=== PATIENT | male | born 1985 | race Caucasian/White ===

== ENCOUNTER 2018-10-15 09:14 | Emergency (ER) | payer OTHER, MEDICAID ==
--- NOTE | 2018-10-15 09:39 | ED ---
Substance Abuse/Use - HPI Summary HPI Summary: This patient is a 33 year old M brought in by ambulance to [facility] with a chief complaint of EtOH intoxication since last night. The patient drank 6 tall boys and a bottle of wine last night, after which his family decided to call the ambulance. Patient denies SI. He reports that he drinks because his brother became homeless and he cannot help him. Patient reports that he is a with a PMHx of a spinal fusion. Patient will be signed out from Dr. Hanks to Dr. Reilly, pending a MHE. - History Of Current Complaint Chief Complaint: EDSubstanceAbuse Stated Complaint: 2208 Time Seen by Provider: 10/15/18 09:25 Hx Obtained From: Patient, EMS Onset/Duration of Drug/ETOH Abuse: Hours Ingestion History: Type/Name Of Drug - EtOH Overdose Characteristics: Oral Timing Of Abuse: Binge Use Associated Signs And Symptoms: Other: - Denies suicidal ideations - Allergies/Home Medications Allergies/Adverse Reactions: Allergies Allergy/AdvReac Type Severity Reaction Status Date / Time No Known Allergies Allergy Verified 03/16/15 14:05 Home Medications: Home Medications NK [No Home Medications Reported] 10/15/18 [History Confirmed 10/15/18] PMH/Surg Hx/FS Hx/Imm Hx Endocrine/Hematology History: Denies: Hx Anticoagulant Therapy, Hx Diabetes, Hx Thyroid Disease Cardiovascular History: Denies: Hx Hypertension, Hx Pacemaker/ICD Respiratory History: Denies: Hx Asthma, Hx Chronic Obstructive Pulmonary Disease (COPD) History: Denies: Hx Renal Disease Musculoskeletal History: Reports: Hx Back Problems - L1 L2 FUSION, Other Musculoskeletal History - chronic pain Sensory History: Reports: Hx Contacts or Glasses Opthamlomology History: Reports: Hx Contacts or Glasses Neurological History: Denies: Hx Dementia, Hx Seizures Psychiatric History: Reports: Hx Anxiety, Hx Attention Deficit Hyperactivity Disorder, Hx Depression, Hx Post Traumatic Stress Disorder, Hx Inpatient Treatment, Hx Community Mental Health Tx, Hx of Violent Episodes Against Others , Hx Substance Abuse, Other Psychiatric Issues/Disorders - ANGER ISSUES Denies: Hx Eating Disorder - Surgical History Surgery Procedure, Year, and Place: REPAIR BURST FRACTURE L-1 2010 ([facility] ) Infectious Disease History: No Infectious Disease History: Denies: Hx Hepatitis, Hx Human Immunodeficiency Virus (HIV), Traveled Outside the [place] in Last 30 Days - Family History Known Family History: Negative: Diabetes - Social History Alcohol Use: Daily Alcohol Amount: 2-3 x/week. 3-4 beers per session. admits to drinking 1/4-3/4 bottle rum Substance Use Type: Reports: Prescribed Smoking Status (MU): Heavy Every Day Tobacco Smoker Type: Cigarettes Amount Used/How Often: 3 cigarettes/day Review of Systems Positive: Other - Intoxicated from EtOH use. Negative: Fever Positive: Other - Denies suicidal ideations All Other Systems Reviewed And Are Negative: Yes Physical Exam - Summary Physical Exam Summary: General: well-appearing, no pain distress. Responds to voice commands. Skin: warm, color reflects adequate perfusion, dry Head: normal Eyes: EOMI, PARRISH ENT: normal Neck: supple, nontender Respiratory: CTA, breath sounds present, no difficulty breathing Cardiovascular: RRR Abdomen: soft, nontender Bowel: present Musculoskeletal: normal, strength/ROM intact, able to move all extremities Neurological: sensory/motor intact, A&O x3 Psychological: affect/mood appropriate Triage Information Reviewed: Yes Vital Signs On Initial Exam: Initial Vitals Temp Pulse Resp BP Pulse Ox 96.9 F 99 14 127/91 93 10/15/18 09:15 10/15/18 09:15 10/15/18 09:15 10/15/18 09:15 10/15/18 09:15 Vital Signs Reviewed: Yes Diagnostics - Vital Signs Vital Signs Temp Pulse Resp BP Pulse Ox 10/15/18 09:18 93 122/86 92 10/15/18 09:17 97 93 10/15/18 09:15 96.9 F 99 14 127/91 93 - Laboratory Result Diagrams: 10/15/18 09:47 10/15/18 09:47 Lab Statement: Any lab studies that have been ordered have been reviewed, and results considered in the medical decision making process. - EKG 11:33 Cardiac Rate: NL - 88 bpm EKG Rhythm: Sinus Rhythm ST Segment: Normal - ST elev, probable normal early repol pattern Ectopy: None Course/Dx - Course Course Of Treatment: Patient at shift change has cleared his alcohol for mental health evaluation and he is pending mental health evaluation and patient is being signed out at shift change. - Diagnoses Provider Diagnoses: Mental health problem, Acute alcohol intoxication Discharge - Sign-Out/Discharge Documenting (check all that apply): Sign-Out Patient Signing out patient TO: Richard Reilly - Pending a MHE - Discharge Plan Referrals: Tomasz Dhaliwal MD [Primary Care Provider] - - Attestation Statements Document Initiated by Blanca: Yes Documenting Scribe: Raffaele Velazquez Provider For Whom Nataliaibe is Documenting (Include Credential): Julius Hanks Scribe Attestation: Raffaele Craft, scribed for Julius Hanks on 10/15/18 at 1831. Scribe Documentation Reviewed: Yes Provider Attestation: The documentation as recorded by the Raffaele malone accurately reflects the service I personally performed and the decisions made by me, Julius Hanks Status of Scribe Document: Viewed
[2018-10-15 09:56] LABS: ABS Basophils 0 10^3/ul (0-0.2); ABS Eosinophils 0.1 10^3/ul (0-0.6); ABS Lymphocytes 1.5 10^3/ul (1.0-4.8); ABS Monocytes 0.8 10^3/ul (0-0.8); ABS Neutrophils 6.3 10^3/ul (1.5-7.7); ABS Nucleated RBC 0 10^3/ul; Eosinophil % 0.7 %; Hematocrit 53 % (42-52); Hemoglobin 17.6 g/dl (14.0-18.0); Lymphocyte % 17.7 %; Mean Corpuscular HGB Conc 33 g/dl (31-36); Mean Corpuscular Hemoglobin 30 pg (27-31); Mean Corpuscular Volume 92 fL (80-94); Mean Platelet Volume 7.6 fL (7.4-10.4); Nucleated Red Blood Cells % 0.1; Platelet Count 255 10^3/ul (150-450); Red Blood Count 5.79 10^6/ul (4.00-5.40); Red Cell Distribution Width 17 % (10.5-15); White Blood Count 8.7 10^3/ul (3.5-10.8)
[2018-10-15 10:14] LABS: ALT 24 U/L (7-52); AST 23 U/L (13-39); Albumin 4.2 g/dL (3.2-5.2); Alkaline Phosphatase 75 U/L (34-104); BUN/Creatinine Ratio 11.1 (8-20); Blood Urea Nitrogen 10 mg/dL (6-24); CO2 Carbon Dioxide 22 mmol/L (22-32); Calcium 8.3 mg/dL (8.6-10.3); EGFR Non-African American 97.2 (>60); Globulin 2.1 g/dL (2-4); Glucose 106 mg/dL (70-100); Potassium 3.8 mmol/L (3.5-5.0); Sodium 144 mmol/L (135-145); Total Protein 6.3 g/dL (6.4-8.9)
[2018-10-15 10:16] LABS: Anion Gap 10 mmol/L (2-11); Chloride 112 mmol/L (101-111)
[2018-10-15 10:19] LABS: Acetaminophen < 15 mcg/mL; Alcohol 281 mg/dL (<10); Salicylate < 2.50 mg/dL (<30)
[2018-10-15 10:35] LABS: TSH (Thyroid Stimulating Horm) 2.26 mcIU/mL (0.34-5.60)
[2018-10-15 21:34] LABS: Urine Appearance Clear; Urine Bacteria Absent (Absent); Urine Bilirubin Negative (Negative); Urine Blood 2+ (Negative); Urine Color Yellow; Urine Glucose Negative (Negative); Urine Ketones Trace (Negative); Urine Nitrite Negative (Negative); Urine Protein Negative (Negative); Urine Red Blood Cell 2+(6-10/hpf) (Absent); Urine Specific Gravity 1.017 (1.010-1.030); Urine Urobilinogen Negative (Negative); Urine White Blood Cell Trace(0-5/hpf) (Absent)
[2018-10-15 21:44] LABS: Barbiturates Urine Screen None Detected (None Detect); Benzodiazepine Urine Screen None Detected (None Detect); Urine Cannabinoids Screen Presumptive Positive (None Detect)
--- NOTE | 2018-10-16 02:23 | ED ---
Progress - Progress Note Progress Note: Sign out from Dr. Ham at 2200. MHE evaluation resulted in diagnosis of PTSD, per Dr. Scott. MHE discharged patient home. - Consult/PCP Time Called: 20:47 Course/Dx - Course Course Of Treatment: Sign out from Dr. Hanks at 1900. MHE evaluation resulted in diagnosis of PTSD, per Dr. Scott. MHE discharged patient home. - Diagnoses Provider Diagnoses: PTSD (post-traumatic stress disorder) Discharge - Sign-Out/Discharge Documenting (check all that apply): Patient Departure - Discharge, per MHE - Discharge Plan Condition: Stable Disposition: HOME Patient Education Materials: Post Traumatic Stress Disorder (ED) Referrals: Tomasz Dhaliwal MD [Primary Care Provider] - Additional Instructions: Per completion of a mental health evaluation, you are cleared for release and do not require inpatient psychiatric hospitalization at this time. Please go to nearest emergency room or call 911 if safety concerns arise or condition worsens. Contact your [facility] Outpatient clinic to resume medications and therapy. Important Phone Numbers: [facility] .......... [phone] Suicide Prevention and Crisis Services........................ [phone] National Suicide Prevention Lifeline............................ 386-686-ECLD (0772) [facility]....................... [phone] Alcoholics Anonymous............................................... [phone] [facility].............. [phone] [facility].............................................. - Billing Disposition and Condition Condition: STABLE Disposition: Home - Attestation Statements Document Initiated by Nataliaibrobby: Yes Documenting Scribe: Aryan Gambino Provider For Whom Blanca is Documenting (Include Credential): Richard Reilly MD Scribe Attestation: Aryan Craft, scribed for Richard Reilly MD on 10/16/18 at 1931. Scribe Documentation Reviewed: Yes Provider Attestation: The documentation as recorded by the Aryan malone accurately reflects the service I personally performed and the decisions made by me, Richard Reilly MD Status of Scribe Document: Viewed
[2018-10-16 03:04] VITALS: BP 119/82
== END 2018-10-16 03:04 | disposition home or self-care (01) ==
LOC: ED 09:14
DX: F43.10 Post-traumatic stress disorder, unspecified (principal); F10.129 Alcohol abuse with intoxication, unspecified; F17.210 Nicotine dependence, cigarettes, uncomplicated
CPT/HCPCS: 36415; 80053; 80307; 80320; 80329; 81003; 81015; 84443; 85025; 87086; 93005; 99285; G0480